=== PATIENT | male | born 1940 | race Caucasian/White ===

== ENCOUNTER 2020-11-14 22:42 | Inpatient (IN) | payer BC, MEDICARE ==
[~2020-11-14] VITALS: Ht 172.7 cm; Wt 80.6 kg
[2020-11-14 23:57] LABS: Basophils # (auto) 0.3 10 ^3/uL (0-0.2); Eosinophils # (auto) 0.1 10 ^3/uL (0-0.8); Eosinophils % (auto) 1.9 % (0.0-7.0); Hemoglobin 10.8 g/dL (13.5-17.5); Lymphocytes # (auto) 1.3 10 ^3/uL (0.4-5.4); Monocytes # (auto) 0.8 10 ^3/uL (0-1.3)
[2020-11-14 23:59] LABS: Basophils % (auto) 3.5 % (0.0-2.0); Hematocrit 34.3 % (41.0-53.0); Lymphocytes % (auto) 17.3 % (10.0-50.0); Mean Corpuscular Hemoglobin 23.4 pg (28.0-32.0); Mean Corpuscular Hgb Conc. 31.5 g/dL (32.0-36.0); Mean Corpuscular Volume 74.5 fL (80.0-100.0); Monocytes % (auto) 10.3 % (0.0-12.0); Nucleated Red Blood Cells % 0.2 %; Platelet Count (auto) 148 10^3/uL (140-450); Red Blood Cells 4.61 10^6/uL (4.5-5.90); White Blood Cell 7.4 10^3/uL (4.4-10.8)
[2020-11-15 00:05] LABS: Red Cell Distribution Width 25.6 % (11.8-14.3)
[2020-11-15 00:11] LABS: Albumin 3.3 g/dL (3.4-5.0); Calcium 9.4 mg/dL (8.5-10.1); Potassium 3.9 mmol/L (3.5-5.1)
[2020-11-15 00:13] LABS: BUN/Creatinine Ratio 14.5
[2020-11-15] MEDS ORDERED: THROMBIN (BOVINE) 5000 UNIT SOL VIAL TP ONE (01:00)
[2020-11-15] MEDS ORDERED: ASPirin 325 MG TAB PO ONE (02:15)
[2020-11-15] MEDS ORDERED: ALPRAZolam 0.5 MG TAB PO ONE (02:15)
[2020-11-15 02:40] LABS: INR 1.27 (0.9-1.15); Partial Thromboplastin Time 30.7 sec (23.0-31.2)
[2020-11-15] MEDS ORDERED: SODIUM CHLORIDE 0.9% 500 ML IV ONE ×2 (04:30→06:45)
[2020-11-15 07:11] LABS: Basophils # (auto) 0.1 10 ^3/uL (0-0.2); Eosinophils # (auto) 0.2 10 ^3/uL (0-0.8); Mean Corpuscular Hgb Conc. 31.3 g/dL (32.0-36.0); Neutrophils # (auto) 4.7 10 ^3/uL (1.6-8.6); Nucleated Red Blood Cells % 0.1 %
[2020-11-15 07:13] LABS: Eosinophils % (auto) 2.4 % (0.0-7.0); Hematocrit 31.5 % (41.0-53.0); Hemoglobin 9.9 g/dL (13.5-17.5); Lymphocytes # (auto) 1.9 10 ^3/uL (0.4-5.4); Lymphocytes % (auto) 23.7 % (10.0-50.0); Mean Corpuscular Hemoglobin 23.7 pg (28.0-32.0); Mean Corpuscular Volume 75.7 fL (80.0-100.0); Monocytes # (auto) 1.1 10 ^3/uL (0-1.3); Monocytes % (auto) 13.8 % (0.0-12.0); Neutrophils % (auto) 59.1 % (37.0-80.0); Platelet Count (auto) 134 10^3/uL (140-450); Red Blood Cells 4.17 10^6/uL (4.5-5.90); Red Cell Distribution Width 24.6 % (11.8-14.3); White Blood Cell 7.9 10^3/uL (4.4-10.8)
[2020-11-15 07:30] LABS: BUN/Creatinine Ratio 14.5
[2020-11-15] MEDS ORDERED: LIDOCAINE 2% (LOCAL ANESTH.) PF 5ml SDV ONE (08:24)
[2020-11-15] MEDS ORDERED: cefTRIAXone 1GM/50ML D5W 50 ML IV ONE (08:45)
[2020-11-15] MEDS ORDERED: GELATIN 1 SPONGE SIZE 50 TOP ONE (09:00)
[2020-11-15] MEDS ORDERED: DOCUSATE SOD 100 MG CAP PO PRN (09:30)
[2020-11-15] MEDS ORDERED: MORPHINE SULF INJ 2 MG/ML SYRINGE 1ML IV PRN ×2 (09:30)
[2020-11-15] MEDS ORDERED: ONDANSETRON HCL 4 MG/2 ML VIAL IV PRN (09:30)
[2020-11-15] MEDS ORDERED: ACETAMINOPHEN 500 MG TAB PO PRN (09:30)
[2020-11-15] MEDS ORDERED: HYDROcodone-ACET 5/325MG TAB PO PRN (09:30)
[2020-11-15] MEDS ORDERED: MUPIROCIN 2% OINT 15gm or 22gm TOP ONE (09:30)
[2020-11-15] MEDS ORDERED: NITROGLYCERIN 0.4 MG SL TAB SL PRN (09:30)
[2020-11-15] MEDS ORDERED: LORazepam 2MG/ML-1ML VIAL IV PRN (09:30)
[2020-11-15] MEDS: FAMOTIDINE 20 MG TAB PO SCH (10:09)
[2020-11-15] MEDS ORDERED: LIDOCAINE W/ EPINEPHRINE 1% 20ML VIAL ID ONE (11:00)
[2020-11-15 16:09] VITALS: BP 98/48
[2020-11-15 17:00] VITALS: BP 98/48
[2020-11-15] MEDS ORDERED: SODIUM CHLORIDE 0.9% 1,000 ML IV ONE (19:00)
[2020-11-15 22:00] VITALS: BP 107/66
[2020-11-15] MEDS: SODIUM CHLORIDE 0.9% 1,000 ML IV SCH (22:44)
[2020-11-16 03:15] VITALS: BP 104/76
[2020-11-16 05:32] VITALS: BP 100/61
[2020-11-16 07:21] LABS: Basophils # (auto) 0.2 10 ^3/uL (0-0.2); Eosinophils # (auto) 0.1 10 ^3/uL (0-0.8); Hematocrit 27.6 % (41.0-53.0); Hemoglobin 8.7 g/dL (13.5-17.5); Nucleated Red Blood Cells % 0.1 %
[2020-11-16 07:25] LABS: Basophils % (auto) 3.3 % (0.0-2.0); Eosinophils % (auto) 2.2 % (0.0-7.0); Lymphocytes % (auto) 17.4 % (10.0-50.0); Mean Corpuscular Hemoglobin 23.9 pg (28.0-32.0); Mean Corpuscular Hgb Conc. 31.7 g/dL (32.0-36.0); Mean Corpuscular Volume 75.3 fL (80.0-100.0); Monocytes # (auto) 0.7 10 ^3/uL (0-1.3); Neutrophils # (auto) 3.6 10 ^3/uL (1.6-8.6); Neutrophils % (auto) 65.1 % (37.0-80.0); Platelet Count (auto) 116 10^3/uL (140-450); Red Blood Cells 3.67 10^6/uL (4.5-5.90); White Blood Cell 5.5 10^3/uL (4.4-10.8)
[2020-11-16 07:36] LABS: Red Cell Distribution Width 24.7 % (11.8-14.3)
[2020-11-16 07:41] LABS: Calcium 8.5 mg/dL (8.5-10.1); Potassium 3.6 mmol/L (3.5-5.1)
[2020-11-16 07:47] LABS: Albumin 2.7 g/dL (3.4-5.0); BUN/Creatinine Ratio 16.9; Bilirubin, Total 1.1 mg/dL (0.2-1.0); Total Protein 5.7 g/dL (6.4-8.2)
[2020-11-16 08:51] VITALS: BP 95/52
[2020-11-16] MEDS: FAMOTIDINE 20 MG TAB PO SCH (10:00)
[2020-11-16] MEDS: SODIUM CHLORIDE 0.9% 1,000 ML IV SCH ×2 (11:51→21:40)
[2020-11-16 13:00] VITALS: BP 137/76
[2020-11-16] MEDS: MUPIROCIN 2% OINT 15gm or 22gm TOP SCH ×2 (14:07→22:00)
[2020-11-17 04:32] LABS: Urine Bacteria FEW /hpf (None Seen); Urine Blood Negative /uL (Negative); Urine Hyaline Cast FEW /lpf (0 - 2); Urine Mucus FEW (None Seen); Urine Specific Gravity 1.019 (1.001-1.035); Urine WBC 1 /hpf (0 - 3)
[2020-11-17 04:43] VITALS: BP 140/89
[2020-11-17 07:31] LABS: Basophils # (auto) 0.2 10 ^3/uL (0-0.2); Mean Corpuscular Hemoglobin 24.3 pg (28.0-32.0)
[2020-11-17 07:32] LABS: Basophils % (auto) 2.6 % (0.0-2.0); Eosinophils # (auto) 0.1 10 ^3/uL (0-0.8); Eosinophils % (auto) 2.1 % (0.0-7.0); Hematocrit 27.8 % (41.0-53.0); Mean Corpuscular Hgb Conc. 32.1 g/dL (32.0-36.0); Mean Corpuscular Volume 75.7 fL (80.0-100.0); Monocytes # (auto) 0.7 10 ^3/uL (0-1.3); Monocytes % (auto) 11.3 % (0.0-12.0); Neutrophils # (auto) 4.4 10 ^3/uL (1.6-8.6); Nucleated Red Blood Cells % 0.2 %; Platelet Count (auto) 121 10^3/uL (140-450); Red Blood Cells 3.68 10^6/uL (4.5-5.90); White Blood Cell 6.5 10^3/uL (4.4-10.8)
[2020-11-17 07:39] LABS: Red Cell Distribution Width 24.6 % (11.8-14.3)
[2020-11-17] MEDS ORDERED: MULT-1018 PO (08:55)
[2020-11-17 09:00] VITALS: BP 131/74
[2020-11-17] MEDS ORDERED: FURO40TA4 PO (09:03)
[2020-11-17] MEDS ORDERED: MAGN84TA4 PO (09:03)
[2020-11-17] MEDS ORDERED: METF-370 PO (09:03)
[2020-11-17] MEDS ORDERED: GABA100C9 PO (09:03)
[2020-11-17] MEDS ORDERED: METO-289 PO (09:03)
[2020-11-17] MEDS ORDERED: POTA-220 PO (09:03)
[2020-11-17] MEDS ORDERED: DIGO0.12 PO (09:03)
[2020-11-17] MEDS ORDERED: ALLO100T PO (09:03)
[2020-11-17] MEDS ORDERED: TRAM50TA2 PO (09:03)
[2020-11-17] MEDS ORDERED: APIX5TAB PO (09:03)
[2020-11-17] MEDS: FAMOTIDINE 20 MG TAB PO SCH (09:43)
[2020-11-17] MEDS: MUPIROCIN 2% OINT 15gm or 22gm TOP SCH (10:02)
[2020-11-17] MEDS: SODIUM CHLORIDE 0.9% 1,000 ML IV SCH (11:12)
[2020-11-17 12:06] VITALS: BP 131/74
[2020-11-17 13:00] VITALS: BP 128/72
[2020-11-17 17:00] VITALS: BP 128/80
== END 2020-11-17 17:47 | disposition hospice, inpatient (51) | DRG 125 ==
LOC: EDBD 22:42 → ER 22:46 → TELE 11-15 09:27 → TELE-CENTR 11-15 14:14
PROVIDERS: ADMIT Nurse Practitioner Acute Care; ATTEND Internal Medicine
DX: S05.31XA Ocular laceration without prolapse or loss of intraocular tissue, right eye, initial encounter (principal); I50.42 Chronic combined systolic (congestive) and diastolic (congestive) heart failure; J96.10 Chronic respiratory failure, unspecified whether with hypoxia or hypercapnia; D68.69 Other thrombophilia; F03.90 Unspecified dementia, unspecified severity, without behavioral disturbance, psychotic disturbance, mood disturbance, and anxiety; I48.91 Unspecified atrial fibrillation; D50.9 Iron deficiency anemia, unspecified; E11.9 Type 2 diabetes mellitus without complications; Z20.822 Contact with and (suspected) exposure to COVID-19; S01.81XA Laceration without foreign body of other part of head, initial encounter; W18.39XA Other fall on same level, initial encounter; I11.0 Hypertensive heart disease with heart failure; I25.10 Atherosclerotic heart disease of native coronary artery without angina pectoris; J44.9 Chronic obstructive pulmonary disease, unspecified; Z79.01 Long term (current) use of anticoagulants; Y93.89 Activity, other specified; Y92.89 Other specified places as the place of occurrence of the external cause; Y99.8 Other external cause status
CPT/HCPCS: 36415; 71045; 80048; 80053; 81001; 82962; 83036; 85025; 85610; 85730; 86850; 86900; 86901; 87081; 87426; 92610; 96361; 96365; 97163; G0378; J0696; J2001